=== PATIENT | male | born 1950 | race Caucasian/White ===

== ENCOUNTER → 2019-08-02 | Outpatient (CLI) | payer MEDICARE, OTHER ==
[~2019-08-02] MED LIST: CATHETER FLUSH 10 ML SYR IV PRN; DIATRIZOATE MEGLUM/SODIUM 37% 120 ML (GASTROGRAFIN) PO ONE; HOLD METFORMIN - RECEIVED CONTRAST 20 ML VIAL IV SCH; IOHEXOL 350 MG/ML 100 ML (OMNIPAQUE 350) VIAL IV ONE; NS 100 ML (IVPB) BAG IV ONE
--- NOTE | 2019-08-02 12:27 | Diagnostic Imaging Report ---
PROCEDURE: CT abdomen and pelvis with and without contrast. TECHNIQUE: Precontrast acquisitions were acquired through the abdomen and pelvis. Multiple contiguous axial images were obtained through the abdomen and pelvis after the administration of intravenous contrast. Auto Exposure Controls were utilized during the CT exam to meet ALARA standards for radiation dose reduction. INDICATION: Pelvic pain. COMPARISON: None. FINDINGS: Included portions of lung bases are clear. CT abdomen: Normal appendix cannot be adequately identified, but there is no pericecal inflammation. Small bowel loops are nondistended. The kidneys, adrenal glands, spleen, pancreas, and liver have a normal CT appearance. There is no loculated fluid collection, free fluid, nor free air within the abdomen. No abnormal mesenteric or retroperitoneal adenopathy is seen. Osseous structures show no acute abnormalities. CT pelvis: Bilateral L5 pars defects are noted. Urinary bladder is grossly unremarkable. There is no loculated fluid collection, free fluid, nor free air within the pelvis. No abnormal lymph nodes are identified. IMPRESSION: 1. No acute abnormalities are seen within the abdomen or pelvis. Dictated by: Dictated on workstation # [id number]
== END ==
LOC: RAD 10:22
PROVIDERS: ATTEND Nurse Practitioner Community Health
DX: R10.2 Pelvic and perineal pain (principal)
CPT/HCPCS: 74178

== ENCOUNTER → 2020-05-27 | Outpatient (CLI) | payer MEDICARE, OTHER ==
[~2020-05-27] MED LIST changes: -CATHETER FLUSH 10 ML SYR IV PRN; -DIATRIZOATE MEGLUM/SODIUM 37% 120 ML (GASTROGRAFIN) PO ONE; -HOLD METFORMIN - RECEIVED CONTRAST 20 ML VIAL IV SCH; -IOHEXOL 350 MG/ML 100 ML (OMNIPAQUE 350) VIAL IV ONE; -NS 100 ML (IVPB) BAG IV ONE; +RT-ALBUTEROL SULF 2.5 MG/3 ML PRE-MIX VIAL INH ONE
== END ==
LOC: RT 08:00
PROVIDERS: ATTEND Nurse Practitioner Family
DX: J40 Bronchitis, not specified as acute or chronic (principal)
CPT/HCPCS: 94060; 94726; 94729

== ENCOUNTER 2021-02-20 13:49 | Observation (INO) | payer MEDICARE, OTHER ==
[~2021-02-20] VITALS: Ht 170.2 cm; Wt 72.0 kg
[2021-02-20 13:49] VITALS: BP 165/92
--- OUTSIDE RECORDS SUMMARY | 2021-02-20 13:57 | XMS REPORT | Clinical Summary ---
Author Author [facility] Organization [facility] Address Unknown Phone Unavailable Care Team Providers Care Legislative Aide Name Role Phone Hawa Azul RN Unavailable Unavailable Myrna Killian Unavailable Jenny Allen MD Unavailable Mavis Hubbard Unavailable Unavailable Emmanuel Beyer MD Unavailable Yoselin Sawyer PCP Chalino Salazar MD Unavailable Source Comments Some departments are not documenting in the electronic medical record. If you d o not see the information that you expected, contact Release of Information in [facility] Health Information Management department at [phone] for further assistan ce in locating additional records.[facility] Allergies No Known Active Allergies Medications End Date Status Medication Sig Dispensed Refills Start Date Active famotidine,+, (PEPCID) 40 Take 1 Tab by 60 0 07/25/200 mg tablet mouth Daily. 9 Active SERTRALINE HCL (ZOLOFT Take by 0 PO) mouth. 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 Vital Signs Reading Time Taken Comments Vital Sign 156/82 10/31/2020 10:42 AM CDT Blood Pressure 77 10/31/2020 10:42 AM CDT Pulse 37.6 C (99.7 F) 09/12/2020 9:23 AM CDT Temperature 16 10/30/2015 8:56 AM CDT Respiratory Rate 100% 07/25/2008 7:14 PM CDT Oxygen Saturation - - Inhaled Oxygen Concentration 70.3 kg (155 lb) 10/31/2020 10:42 AM CDT Weight 170.2 cm (5' 7") 10/31/2020 10:42 AM CDT Height 24.28 10/31/2020 10:42 AM CDT Body Mass Index Plan of Treatment Health Maintenance Due Date Last Done Comments MEDICARE ANNUAL WELLNESS 1950 VISIT DTAP/TDAP VACCINES (1 - 1966 Tdap) HEPATITIS C SCREENING 1966 PHYSICAL (COMPREHENSIVE) 1966 EXAM COLORECTAL CANCER 1998 SCREENING SHINGLES RECOMBINANT 1998 VACCINE (1 of 2) PNEUMONIA (PPSV23) 2013 VACCINE (1 of 1 - PPSV23) INFLUENZA VACCINE 11/16/2020 Results Not on filefrom Last 3 Months Insurance Type Payer Benefit Subscriber ID Effective Phone Address Plan / Dates Group Medicare MEDICARE MEDICARE [id number] 2013- PART A AND Present B [employer] [id number] 03/18- [place] LIFE Present INSURANCE CO Advance Directives Patient [employer] Explanation Type Date Recorded Advance 01/08/2015 9:31 AM Directive/DPOA
[2021-02-20 14:16] LABS: BASOPHILS % (AUTO) 1 % (0-10); EOSINOPHILS # (AUTO) 0.1 10^3/uL (0.0-0.3); EOSINOPHILS % (AUTO) 2 % (0-10); HEMATOCRIT 45 % (40-54); HEMOGLOBIN 15.7 g/dL (13.3-17.7); LYMPHOCYTES # (AUTO) 1.4 10^3/uL (1.0-4.0); LYMPHOCYTES % (AUTO) 24 % (12-44); MEAN CORPUSCULAR HEMOGLOBIN 31 pg (25-34); MEAN CORPUSCULAR HGB CONC 35 g/dL (32-36); MEAN CORPUSCULAR VOLUME 88 fL (80-99); MEAN PLATELET VOLUME 9.4 fL (9.0-12.2); MONOCYTES # (AUTO) 0.7 10^3/uL (0.0-1.0); MONOCYTES % (AUTO) 13 % (0-12); NEUTROPHILS # (AUTO) 3.5 10^3/uL (1.8-7.8); NEUTROPHILS % (AUTO) 61 % (42-75); PLATELET COUNT 221 10^3/uL (130-400); WHITE BLOOD COUNT 5.8 10^3/uL (4.3-11.0)
--- NOTE | 2021-02-20 14:18 | ED Neurological Problem ---
General Chief Complaint: Neuro-Stroke Like Symptoms Stated Complaint: POSSIBLE STROKE Nursing Triage Note: PT AMB TO RM 2 W REPORTS OF RIGHT LEG NUMBNESS X20 MINS THAT BEGAN AT APPROX [phone]. PT WAS ADVISED TO COME TO ED BY [facility]. PT A&OX4. Source: patient Exam Limitations: no limitations History of Present Illness Date Seen by Provider: Feb 20, 2021 Time Seen by Provider: 14:12 Initial Comments Patient to the ER by private conveyance from urgent care clinic with chief complaint that he woke up this morning about 530 he was doing some work and then laid down for a brief nap at 9:00. He woke up between 915 and 930 and was noted to have numbness and weakness in his left leg. He was unable to move it just directed behind it. No history of stroke TIA A. fib heart disease heart attack. Patient does not have a history of hypertension hyperlipidemia. He follows with primary care and neurology at [place] where he was originally from and never transferred to a new doctor when he moved to the area. Since the symptoms lasted only about 20 to 30 minutes and spontaneously resolved he went to urgent care to be checked out. He says he works out every day and is healthy and does not have much medical history. He is not on blood thinners. His blood sugar was 90s according to nurse. No syncope chest pain or shortness of air. He denies any slurred speech facial asymmetry or other symptoms Allergies and Home Medications Allergies Coded Allergies: No Allergy Information Available (Unverified , 08/02/19) Patient Home Medication List Home Medication List Reviewed: Yes Review of Systems Review of Systems Constitutional: No chills, No diaphoresis, No fever, No malaise Eyes: Denies Blindness, Denies Blurred Vision Ears, Nose, Mouth, Throat: denies ear pain, denies ear discharge Respiratory: No cough, No short of breath Cardiovascular: No chest pain, No palpitations Gastrointestinal: No abdominal pain, No constipation, No diarrhea, No nausea, No vomiting Genitourinary: No discharge, No dysuria Musculoskeletal: No back pain, No joint pain Skin: No pruritus, No rash Psychiatric/Neurological: See HPI; Denies Headache; Numbness, Unable to Move Lower Ext, Weakness All Other Systems Reviewed Negative Unless Noted: Yes Past Jglgifp-Ogvsfa-Yaflvc Hx Patient Social History Tobacco Use?: No Use of E-Cig and/or Vaping dev: No Substance use?: No Alcohol Use?: No Immunizations Up To Date First/Initial COVID19 Vaccinat: 2020 Second COVID19 Vaccination Adolph: 2020 COVID19 Vaccine Cad Developer: NADYA Physical Exam Vital Signs Vital Signs - First Documented Capillary Refill : Less Than 3 Seconds Height, Weight, BMI Height: '" Weight: lbs. oz. kg; 24.00 BMI Method: General Appearance: WD/WN, no apparent distress HEENT: PERRL/EOMI, normal ENT inspection, TMs normal, pharynx normal Neck: non-tender, full range of motion, supple, normal inspection Respiratory: lungs clear, normal breath sounds, no respiratory distress, no accessory muscle use Cardiovascular: normal peripheral pulses, regular rate, rhythm Peripheral Pulses: 2+ Radial Pulses (R), 2+ Radial Pulses (L) Gastrointestinal: normal bowel sounds, non tender, soft Extremities: normal range of motion, non-tender, normal inspection, no pedal edema, normal capillary refill Neurologic/Psychiatric: alert, normal mood/affect, oriented x 3 Crainal Nerves: normal hearing, normal speech, PERRL Coordination/Gait: normal gait Motor/Sensory: no motor deficit, no sensory deficit, no pronator drift Skin: normal color, warm/dry Stroke Onset of Symptoms Date of Onset of Symptoms: Feb 20, 2021 Time of Symptom Onset: 09:00 Onset of Symptoms: Yes NIH Stroke Scale Assessment Select: Initial Level of Consciousness: 0=Alert (0), Level of Consciousness- Questions: 0=Answers both month/age (0), LOC Commands: 0=Performs both tasks (0), Visual Gale: 0=No visual loss (0), Facial Movement (Facial Paresis): 0=Normal symmetrical mnt (0), Motor Function-Arms Right: 0=No drift (0), Motor Function-Arms Left: 0=No drift (0), Motor Function-Legs Right: 0=No drift (0), Motor Function-Legs Left: 0=No drift (0), Limb Ataxia: 0=Absent (0), Sensory: 0=Normal:no loss (0), Best Language: 0=No aphasia (0), Dysarthria: 0=Normal (0), Extinction & Inattention: 0=No abnormality (0), Total: 0 Stroke Thrombolytic Exclusion Age 18 or Over: Yes Acute intenal hemorrhage: No History of CVA: No Uncontrolled Coagulation Defec: No Intracranial Hemorrhage: No Severe Hypertension: No GI or Bleed: No Subarachnoid Hemorrhage: No Intracranial Neoplasm/Aneurysm: No Oral Anticoagulants: No Surgery or Trauma: No Puncture of Non-Compressible V: No Recent CPR: No Diabetic Hemorrhagic Retinopat: No Organ Biopsy: No Recent Obstetric Delivery: No Glucose: No Significant Hepatic Dysfunctio: No NIH Stoke Scale >22: No Bacterial Endocarditis: No Pericarditis: No Improving Symptoms: No Platelets: No TPA Contraindication: No IV - TPa Received IV - TPa Procedure Performed?: No (Inadequate benefit to risk ratio. Outside the window for time.) Progress/Results/Core Measures Results/Orders Lab Results Laboratory Tests Test 02/20/21 14:00 02/20/21 14:01 Range/Units White Blood Count 5.8 4.3-11.0 10^3/uL Red Blood Count 5.10 4.30-5.52 10^6/uL Hemoglobin 15.7 13.3-17.7 g/dL Hematocrit 45 40-54 % Mean Corpuscular Volume 88 80-99 fL Mean Corpuscular Hemoglobin 31 25-34 pg Mean Corpuscular Hemoglobin Concent 35 32-36 g/dL Red Cell Distribution Width 11.9 10.0-14.5 % Platelet Count 221 130-400 10^3/uL Mean Platelet Volume 9.4 9.0-12.2 fL Immature Granulocyte % (Auto) 0 % Neutrophils (%) (Auto) 61 42-75 % Lymphocytes (%) (Auto) 24 12-44 % Monocytes (%) (Auto) 13 H 0-12 % Eosinophils (%) (Auto) 2 0-10 % Basophils (%) (Auto) 1 0-10 % Neutrophils # (Auto) 3.5 1.8-7.8 10^3/uL Lymphocytes # (Auto) 1.4 1.0-4.0 10^3/uL Monocytes # (Auto) 0.7 0.0-1.0 10^3/uL Eosinophils # (Auto) 0.1 0.0-0.3 10^3/uL Basophils # (Auto) 0.0 0.0-0.1 10^3/uL Immature Granulocyte # (Auto) 0.0 0.0-0.1 10^3/uL Prothrombin Time 14.4 12.2-14.7 SEC INR Comment 1.1 0.8-1.4 Activated Partial Thromboplast Time 31 24-35 SEC D-Dimer 0.32 0.00-0.49 UG/ML Sodium Level 138 135-145 MMOL/L Potassium Level 4.0 3.6-5.0 MMOL/L Chloride Level 105 98-107 MMOL/L Carbon Dioxide Level 25 21-32 MMOL/L Anion Gap 8 5-14 MMOL/L Blood Urea Nitrogen 17 7-18 MG/DL Creatinine 0.89 0.60-1.30 MG/DL Estimat Glomerular Filtration Rate 84 BUN/Creatinine Ratio 19 Glucose Level 102 70-105 MG/DL Calcium Level 9.1 8.5-10.1 MG/DL Corrected Calcium 8.9 8.5-10.1 MG/DL Total Bilirubin 0.8 0.1-1.0 MG/DL Aspartate Amino Transf (AST/SGOT) 29 5-34 U/L Alanine Aminotransferase (ALT/SGPT) 29 0-55 U/L Alkaline Phosphatase 70 40-136 U/L Troponin I < 0.028 <0.028 NG/ML Total Protein 6.8 6.4-8.2 GM/DL Albumin 4.3 3.2-4.5 GM/DL Glucometer 93 70-110 MG/DL My Orders Orders - FIDE GROSSMAN Cbc With Automated Diff (02/20/21 14:07) Protime With Inr (02/20/21 14:07) Partial Thromboplastin Time (02/20/21 14:07) Comprehensive Metabolic Panel (02/20/21 14:07) Fibrin Degradation Products (02/20/21 14:07) Troponin I (02/20/21 14:07) Ua Culture If Indicated (02/20/21 14:07) Chest 1 View, Ap/Pa Only (02/20/21 14:07) Ekg Tracing (02/20/21 14:07) Nothing By Mouth (02/20/21 Lunch) Accucheck Stat ONCE (02/20/21 14:07) Ed Iv/Invasive Line Start (02/20/21 14:07) Ed Iv/Invasive Line Start (02/20/21 14:07) Vital Signs Stroke Patient Q15M (02/20/21 14:07) Ct Head Wo-R/O Stroke (02/20/21 14:07) O2 (02/20/21 14:07) Intake & Output 06,14,22 (02/20/21 14:07) Monitor-Rhythm Ecg Trace Only (02/20/21 14:07) Dysphagia Screening Tool (02/20/21 14:07) Lipid Panel (02/21/21 06:00) Ct Angio Head/Neck (02/20/21 14:48) Mri Brain W/O Contrast (02/20/21 15:10) Medications Given in ED Current Medications Medications Dose Ordered Sig/Gilma Route Start Time Stop Time Status Last Admin Dose Admin Iohexol 75 ml ONCE ONCE IV 02/20/21 15:15 02/20/21 15:17 DC 02/20/21 15:17 75 ML Sodium Chloride 10 ml NEEDED PRN IV 02/20/21 15:15 02/20/21 15:18 10 ML Sodium Chloride 100 ml ONCE ONCE IV 02/20/21 15:15 02/20/21 15:17 DC 02/20/21 15:17 80 ML Vital Signs/I&O 02/20/21 02/20/21 13:49 13:49 Temp 36.4 Pulse 75 75 Resp 20 20 B/P (MAP) 165/92 (116) 165/92 Pulse Ox 96 96 O2 Delivery Room Air Blood Pressure Mean: 116 Progress Progress Note : Time: 14:15 Progress Note Patient presents 5 hours after onset of symptoms and so he is outside the window for TPA. He also is asymptomatic. Suspect he had a TIA. We will get a CT of his head and reviewed the case with neurology and we have recommended to him an observation stay to meet with cardiology on telemetry and do a thorough work-up for the source of his symptoms. Patient states his agreement with this plan. Patient is significantly hypertensive with a 176 systolic over 109 on arrival. Hypertensive encephalopathy is also a possibility. Will observe his blood pressure. Initial ECG Impression Date: Feb 20, 2021 Initial ECG Impression Time: 14:11 Initial ECG Rate: 78 Initial ECG Rhythm: Normal Sinus Initial ECG Intervals: Normal Initial ECG Impression: Normal Initial ECG Comparisson: No Previous ECG Available Comment Normal sinus rhythm without clinically relevant ST elevation or depression Diagnostic Imaging Diagonstic Imaging: CT Plain Films/CT/US/NM/MRI: head Comments [facility] [place], [place] NAME: MICHELLE FAITH MED REC#: [id number] PT STATUS: REG ER : 1950 PHYSICIAN: FIDE GROSSMAN MD ADMIT DATE: 02/20/21/ER Draft Date of Exam:02/20/21 CT HEAD WO-R/O STROKE PROCEDURE: CT head wo r/o stroke. TECHNIQUE: Multiple contiguous axial images were obtained through the brain without the use of intravenous contrast. Auto Exposure Controls were utilized during the CT exam to meet ALARA standards for radiation dose reduction. INDICATION: Lower extremity weakness. There is no previous study for comparison. Ventricles and sulci are within normal limits for patient's age. There is low-density and deep white matter of both hemispheres which could represent chronic microvascular ischemia. No intracranial hemorrhage is identified. There is no geographic low density to indicate territorial infarct. High density is seen within the cerebral arteries. This may be due to atherosclerosis or hemoconcentration although clinical correlation is recommended. There is no abnormal mass effect or shift of midline structures. Calvarium is intact and the visualized paranasal sinuses are clear. IMPRESSION: Low-density in the cerebral white matter is likely due to chronic microvascular ischemia. Note is also made of increased density in the cerebral arterial tree which could be due to atherosclerosis or hemoconcentration. If further evaluation is warranted, consideration could be given to CTA of the head for assessment. Dictated on workstation # [id number] Dict: 02/20/21 1424 Trans: 02/20/211427 [facility] [id number] Interpreted by: TINA MACIAS MD Electronically signed by: Reviewed: Reviewed by Ca Diagonstic Imaging: Xray Plain Films/CT/US/NM/MRI: chest Comments [facility] [place] [place] NAME: MICHELLE FAITH MED REC#: [id number] PT STATUS: REG ER : 1950 PHYSICIAN: FIDE GROSSMAN MD ADMIT DATE: 02/20/21/ER Draft Date of Exam:02/20/21 CHEST 1 VIEW, AP/PA ONLY INDICATION: Stroke-like symptoms. EXAMINATION: Chest from 02/20/2021. FINDINGS: The heart is unremarkable. Pulmonary vasculature is normal. The lungs and pleural spaces are clear. No pneumothorax. No effusions. No acute osseous abnormality. IMPRESSION: 1. No acute cardiopulmonary process. Dictated on workstation # [id number] Dict: 02/20/21 1434 Trans: 02/20/21 1439 [id number] Interpreted by: SCARLET LUTHER MD Electronically signed by: Reviewed: Reviewed by Me Diagonstic Imaging: CT Plain Films/CT/US/NM/MRI: head (neck angio) Comments NAME: MICHLELE FAITH [facility] REC#: [id number] PT STATUS: REG ER : 1950 PHYSICIAN: FIDE GROSSMAN MD ADMIT DATE: 02/20/21/ER Draft Date of Exam:02/20/21 CT ANGIO HEAD/NECK PROCEDURE: CT angiography of the head and CT angiography of the neck with and without contrast. TECHNIQUE: Contiguous noncontrast images were obtained from the skull base through the vertex. After intravenous contrast administration, helical CT angiography of the neck was performed. Source data was reformatted into 3D MIP projections. Delayed post contrast acquisition was also obtained. Auto Exposure Controls were utilized during the CT exam to meet ALARA standards for radiation dose reduction. INDICATION: STROKE. FINDINGS: Delayed postcontrast imaging shows no abnormal enhancing lesion. CT angiographic portion of the study demonstrates a three-vessel branching pattern to the aortic arch. The right and left common carotid arteries are widely patent. The carotid bifurcations are unremarkable. The right and left internal carotid arteries appear to be widely patent. The vertebral arteries are codominant and appear to be widely patent. Basilar artery is widely patent. A right P1 segment is hypoplastic with a patent posterior communicating artery on the right. Bilateral posterior cerebral arteries appear to be patent. The M1 and M2 segments of the middle cerebral arteries, bilaterally, appear widely patent. No thromboembolism is identified. The right and left anterior cerebral arteries appear to be widely patent. No large branch occlusion is identified. IMPRESSION: Unremarkable CT angiogram of the head and neck. No thromboembolism or large branch occlusion is identified. Dictated on workstation # [id number] Dict: 02/20/21 1528 Trans: 02/20/21 1542 [facility] [id number] Interpreted by: MELISA ALBARRAN MD Electronically signed by: Reviewed: Reviewed by Me Diagonstic Imaging: MRI Plain Films/CT/US/NM/MRI: head Comments [facility] [place] NAME: MICHELLE FAITH [facility] REC#: [id number] PT STATUS: ADM Rhea : 1950 PHYSICIAN: FIDE GROSSMAN MD ADMIT DATE: 02/20/21 Draft Date of Exam:02/20/21 MRI BRAIN W/O CONTRAST PROCEDURE: MR imaging of the brain without contrast. TECHNIQUE: Multiplanar, multisequence MR imaging of the brain was performed without contrast. INDICATION: TIA, lower extremity weakness. COMPARISON: CT head and CTA head and neck from earlier the same day. FINDINGS: No restricted diffusion that would indicate acute infarct. No gradient blooming hypointensities that would indicate hemorrhage. Extensive T2 hyperintensities in the deep white matter and erma. This is a distribution that favors chronic microvascular ischemic disease. No hydrocephalus, mass or extra-axial fluid collection. No features of vasogenic edema. Major arterial flow voids are preserved. Pituitary and pineal regions are unremarkable. No sagging of the brainstem. Calvarium is unremarkable. Orbits are normal in appearance. Paranasal sinuses are clear. Mastoid air cells are clear. IMPRESSION: 1. No acute intracranial abnormality. Specifically, no acute infarct. 2. Extensive chronic small vessel ischemic change. Dictated on workstation # [id number] Dict: 02/20/21 1554 Trans: 02/20/21 1606 [facility] [id number] Interpreted by: CHASITY QUINTEROS MD Electronically signed by: Reviewed: Reviewed by Me Consults : Consults Notes Dr. Hicks, [facility] stroke neurologist on-call. Discussed the case at 1440. She recommends CT angiogram. Concern for lesion of anterior cerebral artery. Otherwise standard work-up including echocardiogram MRI etc. Departure Communication (Admissions) Time/Spoke to Admitting Phy: 15:10 1510: Left voicemail for Dr. Lindsey. 1520: Discussed the case with Dr. Lindsey and she agrees to observe the patient with consultation to cardiology. MRI today Time/Spoke to Consulting Phy: 15:15 Discussed the case with Dr. Zhang, cardiology is okay with an echocardiogram in the morning and will consult on the case Impression Primary Impression: TIA (transient ischemic attack) Additional Impression: Transient left leg weakness Disposition: ADMITTED INPATIENT Condition: Stable Admissions Decision to Admit Reason: Admit from ER (General) Decision to Admit/Date: Feb 20, 2021 Time/Decision to Admit Time: 14:19 Departure-Patient Inst. Referrals: NO,LOCAL PHYSICIAN (PCP/Family) Primary Care Physician FIDE GROSSMAN Feb 20, 2021 14:17
[2021-02-20 14:24] LABS: FIBRIN DEGRADATION PRODUCTS 0.32 UG/ML (0.00-0.49); INR 1.1 (0.8-1.4); PROTHROMBIN TIME PATIENT 14.4 SEC (12.2-14.7)
--- NOTE | 2021-02-20 14:28 | Diagnostic Imaging Report ---
PROCEDURE: CT head wo r/o stroke. TECHNIQUE: Multiple contiguous axial images were obtained through the brain without the use of intravenous contrast. Auto Exposure Controls were utilized during the CT exam to meet ALARA standards for radiation dose reduction. INDICATION: Lower extremity weakness. There is no previous study for comparison. Ventricles and sulci are within normal limits for patient's age. There is low-density and deep white matter of both hemispheres which could represent chronic microvascular ischemia. No intracranial hemorrhage is identified. There is no geographic low density to indicate territorial infarct. High density is seen within the cerebral arteries. This may be due to atherosclerosis or hemoconcentration although clinical correlation is recommended. There is no abnormal mass effect or shift of midline structures. Calvarium is intact and the visualized paranasal sinuses are clear. IMPRESSION: Low-density in the cerebral white matter is likely due to chronic microvascular ischemia. Note is also made of increased density in the cerebral arterial tree which could be due to atherosclerosis or hemoconcentration. If further evaluation is warranted, consideration could be given to CTA of the head for assessment. Dictated by: Dictated on workstation # [id number]
[2021-02-20 14:30] LABS: ALANINE AMINOTRANSFERASE 29 U/L (0-55); ALBUMIN 4.3 GM/DL (3.2-4.5); ALKALINE PHOSPHATASE 70 U/L (40-136); BILIRUBIN,TOTAL 0.8 MG/DL (0.1-1.0); BUN/CREATININE RATIO 19; CALCIUM 9.1 MG/DL (8.5-10.1); CARBON DIOXIDE 25 MMOL/L (21-32); CHLORIDE 105 MMOL/L (98-107); CREATININE SERUM 0.89 MG/DL (0.60-1.30); GFR ESTIMATED 84; GLUCOSE 102 MG/DL (70-105); SODIUM 138 MMOL/L (135-145); TOTAL PROTEIN 6.8 GM/DL (6.4-8.2)
--- NOTE | 2021-02-20 14:40 | Diagnostic Imaging Report ---
INDICATION: Stroke-like symptoms. EXAMINATION: Chest from 02/20/2021. FINDINGS: The heart is unremarkable. Pulmonary vasculature is normal. The lungs and pleural spaces are clear. No pneumothorax. No effusions. No acute osseous abnormality. IMPRESSION: 1. No acute cardiopulmonary process. Dictated by: Dictated on workstation # [id number]
[2021-02-20] MEDS ORDERED: HOLD METFORMIN - RECEIVED CONTRAST 20 ML VIAL IV SCH (15:15)
[2021-02-20] MEDS ORDERED: IOHEXOL 350 MG/ML 100 ML (OMNIPAQUE 350) VIAL IV ONE (15:15)
[2021-02-20] MEDS ORDERED: CATHETER FLUSH 10 ML SYR IV PRN ×2 (15:15→17:30)
[2021-02-20] MEDS ORDERED: NS 100 ML (IVPB) BAG IV ONE (15:15)
[2021-02-20 15:34] LABS: BILIRUBIN,URINE NEGATIVE (NEGATIVE); CLARITY,URINE CLEAR; COLOR,URINE YELLOW; GLUCOSE, URINE (UA) NEGATIVE (NEGATIVE); KETONES,URINE NEGATIVE (NEGATIVE); LEUKOCYTE ESTERASE ,URINE NEGATIVE (NEGATIVE); NITRITE,URINE NEGATIVE (NEGATIVE); PROTEIN,URINE NEGATIVE (NEGATIVE)
[2021-02-20 15:40] LABS: BACTERIA,URINE NEGATIVE /HPF; RBC,URINE 0-2 /HPF; SQUAMOUS EPITHELIAL CELL,UR RARE /HPF
--- NOTE | 2021-02-20 15:43 | Diagnostic Imaging Report ---
PROCEDURE: CT angiography of the head and CT angiography of the neck with and without contrast. TECHNIQUE: Contiguous noncontrast images were obtained from the skull base through the vertex. After intravenous contrast administration, helical CT angiography of the neck was performed. Source data was reformatted into 3D MIP projections. Delayed post contrast acquisition was also obtained. Auto Exposure Controls were utilized during the CT exam to meet ALARA standards for radiation dose reduction. INDICATION: STROKE. FINDINGS: Delayed postcontrast imaging shows no abnormal enhancing lesion. CT angiographic portion of the study demonstrates a three-vessel branching pattern to the aortic arch. The right and left common carotid arteries are widely patent. The carotid bifurcations are unremarkable. The right and left internal carotid arteries appear to be widely patent. The vertebral arteries are codominant and appear to be widely patent. Basilar artery is widely patent. A right P1 segment is hypoplastic with a patent posterior communicating artery on the right. Bilateral posterior cerebral arteries appear to be patent. The M1 and M2 segments of the middle cerebral arteries, bilaterally, appear widely patent. No thromboembolism is identified. The right and left anterior cerebral arteries appear to be widely patent. No large branch occlusion is identified. IMPRESSION: Unremarkable CT angiogram of the head and neck. No thromboembolism or large branch occlusion is identified. Dictated by: Dictated on workstation # [id number]
--- NOTE | 2021-02-20 15:43 | History & Physical-Hospitalist ---
History of Present Illness Source: patient Date Seen 02/20/21 Time Seen by a Provider: 15:43 Attending Physician PCP No,Local Physician Referring Physician Date of Admission Home Medications & Allergies Home Medications Reviewed patient Home Medication Reconciliation performed by pharmacy medication reconciliations denture technician and/or nursing. Patients Allergies have been reviewed. Allergies Allergies Coded Allergies No Allergy Information Available (Unverified08/02/19) Past Tchzduj-Hmosew-Snfwqr Hx Patient Social History Tobacco Use?: No Use of E-Cig and/or Vaping dev: No Substance use?: No Alcohol Use?: No Immunizations Up To Date First/Initial COVID19 Vaccinat: 2020 Second COVID19 Vaccination Adolph: 2020 Current Status Advance Directives: No Communicates: Verbally Primary Language: Prydeinig Preferred Spoken Language: Prydeinig Is interpretation needed?: No Implanted or Applied Medical D: None Physical Exam Physical Exam Vital Signs Vital Signs - First Documented Capillary Refill : Less Than 3 Seconds Height, Weight, BMI Height: '" Weight: lbs. oz. kg; 24.00 BMI Method: Results Results/Procedures Labs Laboratory Tests 02/20/21 14:00 Patient resulted labs reviewed. Clinical Quality Measures Stroke: Date of last known well: Feb 20, 2021 Time of last known well: 09:00 KATHLEEN TURNER MD Feb 20, 2021 15:43
--- NOTE | 2021-02-20 16:07 | Diagnostic Imaging Report ---
PROCEDURE: MR imaging of the brain without contrast. TECHNIQUE: Multiplanar, multisequence MR imaging of the brain was performed without contrast. INDICATION: TIA, lower extremity weakness. COMPARISON: CT head and CTA head and neck from earlier the same day. FINDINGS: No restricted diffusion that would indicate acute infarct. No gradient blooming hypointensities that would indicate hemorrhage. Extensive T2 hyperintensities in the deep white matter and erma. This is a distribution that favors chronic microvascular ischemic disease. No hydrocephalus, mass or extra-axial fluid collection. No features of vasogenic edema. Major arterial flow voids are preserved. Pituitary and pineal regions are unremarkable. No sagging of the brainstem. Calvarium is unremarkable. Orbits are normal in appearance. Paranasal sinuses are clear. Mastoid air cells are clear. IMPRESSION: 1. No acute intracranial abnormality. Specifically, no acute infarct. 2. Extensive chronic small vessel ischemic change. Dictated by: Dictated on workstation # [id number]
--- NOTE | 2021-02-20 16:19 | History & Physical-Hospitalist ---
History of Present Illness HPI/Chief Complaint Pt is a 70-year-old male with no reported past medical history who presented to the emergency department due to left leg weakness. He states he is in the process of moving and was loading up his truck when he got tired and so decided to take a nap. When he woke up he could not move his left leg. He thought that had just gone to sleep but this continued for over half an hour without improvement so he decided to seek evaluation. He [place] [facility] [place] and was advised to come to the emergency department. By arrival here his symptoms had resolved and his NIH was 0. CT head was done and was ne gative for intracranial hemorrhage. He was admitted for TIA for observation overnight. He reports no previous similar episodes. Source: patient Date Seen 02/20/21 Time Seen by a Provider: 16:13 Attending Physician Kathleen Lindsey MD PCP No,Local Physician Referring Physician Date of Admission Feb 20, 2021 at 15:15 Home Medications & Allergies Home Medications Reviewed patient Home Medication Reconciliation performed by pharmacy medication reconciliations microbiological laboratory technician and/or nursing. Patients Allergies have been reviewed. Allergies Allergies Coded Allergies No Allergy Information Available (Unverified08/02/19) Past Srydztu-Hulxjh-Bxgsdf Hx Patient Social History Tobacco Use?: No Use of E-Cig and/or Vaping dev: No Substance use?: No Alcohol Use?: No Immunizations Up To Date First/Initial COVID19 Vaccinat: 2020 Second COVID19 Vaccination Adolph: 2020 Current Status Advance Directives: No Communicates: Verbally Primary Language: Hebrew Preferred Spoken Language: Hebrew Is interpretation needed?: No Implanted or Applied Medical D: None Review of Systems Constitutional: No chills, No fever EENTM: no symptoms reported Respiratory: no symptoms reported Cardiovascular: No edema, No Hx of Intervention, No palpitations Gastrointestinal: no symptoms reported Genitourinary: no symptoms reported Musculoskeletal: see HPI Skin: no symptoms reported Psychiatric/Neurological: See HPI Physical Exam Physical Exam Vital Signs Vital Signs - First Documented Capillary Refill : Less Than 3 Seconds Height, Weight, BMI Height: '" Weight: lbs. oz. kg; 24.00 BMI Method: General Appearance: No Apparent Distress, WD/WN HEENT: PERRL/EOMI, Moist Mucous Membranes Neck: Normal Inspection, Supple Respiratory: Lungs Clear, No Accessory Muscle Use, No Respiratory Distress Cardiovascular: Regular Rate, Rhythm, No JVD, No Murmur Gastrointestinal: Normal Bowel Sounds, Non Tender, Soft Extremity: Non Tender, No Calf Tenderness, No Pedal Edema Neurologic/Psychiatric: Alert, Oriented x3, Normal Mood/Affect; No Aphasia, No Facial Droop, No Motor Weakness, No Sensory Deficit Skin: Normal Color, Warm/Dry Results Results/Procedures Labs Laboratory Tests 02/20/21 14:00 02/21/21 06:22 Patient resulted labs reviewed. Imaging: Reviewed Imaging Report Imaging [facility] [place], [place] NAME: MICHELLE FAITH [facility] REC#: [id number] PT STATUS: REG ER : 1950 PHYSICIAN: FIDE GROSSMAN MD ADMIT DATE: 02/20/21/ER Draft Date of Exam:02/20/21 CT HEAD WO-R/O STROKE PROCEDURE: CT head wo r/o stroke. TECHNIQUE: Multiple contiguous axial images were obtained through the brain without the use of intravenous contrast. Auto Exposure Controls were utilized during the CT exam to meet ALARA standards for radiation dose reduction. INDICATION: Lower extremity weakness. There is no previous study for comparison. Ventricles and sulci are within normal limits for patient's age. There is low-density and deep white matter of both hemispheres which could represent chronic microvascular ischemia. No intracranial hemorrhage is identified. There is no geographic low density to indicate territorial infarct. High density is seen within the cerebral arteries. This may be due to atherosclerosis or hemoconcentration although clinical correlation is recommended. There is no abnormal mass effect or shift of midline structures. Calvarium is intact and the visualized paranasal sinuses are clear. IMPRESSION: Low-density in the cerebral white matter is likely due to chronic microvascular ischemia. Note is also made of increased density in the cerebral arterial tree which could be due to atherosclerosis or hemoconcentration. If further evaluation is warranted, consideration could be given to CTA of the head for assessment. Dictated on workstation # [id number] Dict: 02/20/21 1424 Trans: 02/20/21 1428 CV [id number] Interpreted by: TINA MACIAS MD Electronically signed by: [facility] [place] [place] NAME: MICHELLE FAITH [facility] REC#: [id number] PT STATUS: ADM Rhea : 1950 PHYSICIAN: FIDE GROSSMAN MD ADMIT DATE: 02/20/21 Signed Date of Exam:02/20/21 CT ANGIO HEAD/NECK PROCEDURE: CT angiography of the head and CT angiography of the neck with and without contrast. TECHNIQUE: Contiguous noncontrast images were obtained from the skull base through the vertex. After intravenous contrast administration, helical CT angiography of the neck was performed. Source data was reformatted into 3D MIP projections. Delayed post contrast acquisition was also obtained. Auto Exposure Controls were utilized during the CT exam to meet ALARA standards for radiation dose reduction. INDICATION: STROKE. FINDINGS: Delayed postcontrast imaging shows no abnormal enhancing lesion. CT angiographic portion of the study demonstrates a three-vessel branching pattern to the aortic arch. The right and left common carotid arteries are widely patent. The carotid bifurcations are unremarkable. The right and left internal carotid arteries appear to be widely patent. The vertebral arteries are codominant and appear to be widely patent. Basilar artery is widely patent. A right P1 segment is hypoplastic with a patent posterior communicating artery on the right. Bilateral posterior cerebral arteries appear to be patent. The M1 and M2 segments of the middle cerebral arteries, bilaterally, appear widely patent. No thromboembolism is identified. The right and left anterior cerebral arteries appear to be widely patent. No large branch occlusion is identified. IMPRESSION: Unremarkable CT angiogram of the head and neck. No thromboembolism or large branch occlusion is identified. Dictated by: Dictated on workstation # [id number] Dict: 02/20/21 1528 Trans: 02/20/21 1557 [facility] [id number] Interpreted by: MELISA ALBARRAN MD Electronically signed by: MELISA ALBARRAN MD 02/20/21 1557 [facility] [place], [place] NAME: MICHELLE FAITH [facility] REC#: [id number] PT STATUS: ADM Rhea : 1950 PHYSICIAN: FIDE GROSSMAN MD ADMIT DATE: 02/20/21 Draft Date of Exam:02/20/21 MRI BRAIN W/O CONTRAST PROCEDURE: MR imaging of the brain without contrast. TECHNIQUE: Multiplanar, multisequence MR imaging of the brain was performed without contrast. INDICATION: TIA, lower extremity weakness. COMPARISON: CT head and CTA head and neck from earlier the same day. FINDINGS: No restricted diffusion that would indicate acute infarct. No gradient blooming hypointensities that would indicate hemorrhage. Extensive T2 hyperintensities in the deep white matter and erma. This is a distribution that favors chronic microvascular ischemic disease. No hydrocephalus, mass or extra-axial fluid collection. No features of vasogenic edema. Major arterial flow voids are preserved. Pituitary and pineal regions are unremarkable. No sagging of the brainstem. Calvarium is unremarkable. Orbits are normal in appearance. Paranasal sinuses are clear. Mastoid air cells are clear. IMPRESSION: 1. No acute intracranial abnormality. Specifically, no acute infarct. 2. Extensive chronic small vessel ischemic change. Dictated on workstation # [id number] Dict: 02/20/21 1554 Trans: 02/20/21 1606 [facility] [id number] Interpreted by: CHASITY QUINTEROS MD Electronically signed by: Assessment/Plan Admission Diagnosis TIA Admission Status: Observation Assessment and Plan TIA- left leg weakness CT and CTA Head negative for acute abnormalities MRI Brain negative for acute findings but showed extenisve chronic small vessel disease Symptoms resolved now Monitor overnight with telemetry Cardiology consulted Echo in AM PT/OT Hopefully home tomorrow if he does well HTN Denies HTN but filled amlodipine 90 day supply in December and hypertensive on arrival Continue amlodipine DVT ppx: Lovenox Diagnosis/Problems Diagnosis/Problems (1) TIA (transient ischemic attack) Status: Acute (2) Essential (primary) hypertension Clinical Quality Measures Stroke: Date of last known well: Feb 20, 2021 Time of last known well: 09:00 KATHLEEN LINDSEY MD Feb 20, 2021 16:19
[2021-02-20] MEDS ORDERED: ACETAMINOPHEN 325 MG TABLET PO PRN (17:30)
[2021-02-20] MEDS ORDERED: ACETAMINOPHEN 650 MG SUPP (TYLENOL) PR PRN (17:30)
[2021-02-20] MEDS ORDERED: MILK OF MAGNESIA 400 MG/5 ML 30 ML UDC PO PRN (17:30)
[2021-02-20] MEDS ORDERED: APAP 325 MG/10.15 ML LIQ (TYLENOL) UDC PO PRN (17:30)
[2021-02-20] MEDS ORDERED: APAP 325 MG/10.15 ML LIQ (TYLENOL) UDC NG PRN (17:30)
[2021-02-20 19:18] VITALS: BP 139/73
[2021-02-20] MEDS: CATHETER FLUSH 10 ML SYR IV SCH (20:13)
[2021-02-21 00:20] VITALS: BP 118/67
[2021-02-21 04:20] VITALS: BP 141/78
[2021-02-21 06:36] LABS: BASOPHILS % (AUTO) 0 % (0-10); EOSINOPHILS # (AUTO) 0.2 10^3/uL (0.0-0.3); EOSINOPHILS % (AUTO) 3 % (0-10); HEMATOCRIT 44 % (40-54); HEMOGLOBIN 15.2 g/dL (13.3-17.7); LYMPHOCYTES # (AUTO) 1.2 10^3/uL (1.0-4.0); LYMPHOCYTES % (AUTO) 22 % (12-44); MEAN CORPUSCULAR HEMOGLOBIN 31 pg (25-34); MEAN CORPUSCULAR HGB CONC 35 g/dL (32-36); MEAN CORPUSCULAR VOLUME 89 fL (80-99); MEAN PLATELET VOLUME 9.5 fL (9.0-12.2); MONOCYTES # (AUTO) 0.6 10^3/uL (0.0-1.0); MONOCYTES % (AUTO) 11 % (0-12); NEUTROPHILS # (AUTO) 3.5 10^3/uL (1.8-7.8); NEUTROPHILS % (AUTO) 63 % (42-75); PLATELET COUNT 208 10^3/uL (130-400); WHITE BLOOD COUNT 5.6 10^3/uL (4.3-11.0)
[2021-02-21 06:55] LABS: CALCIUM 8.5 MG/DL (8.5-10.1); CREATININE SERUM 0.88 MG/DL (0.60-1.30); POTASSIUM 4.3 MMOL/L (3.6-5.0)
--- NOTE | 2021-02-21 07:42 | Physical Therapy Evaluation ---
PT Evaluation-General Medical Diagnosis Admission Date Feb 20, 2021 at 15:15 Medical Diagnosis: TIA Onset Date: Feb 20, 2021 Therapy Diagnosis Therapy Diagnosis: balance limitations Precautions Precautions/Isolations: Standard Precautions Weight Bear Status Full Weight Bearing Full Weight Bearing Referral Physician: Dorothea Reason for Referral: Evaluation/Treatment Prior Prior Level of Function SCALE: Activities may be completed with or without assistive devices. 8-Ziwnsptuem-sqsivab completes the activity by him/herself with no assistance from a helper. 5-Set-up or Clean-up Assistance-helper sets up or cleans up; patient completes activity. [place] assists only prior to or following the activity. 4-Supervision or Touching Assistance-helper provides verbal cues and/or touching/steadying and/or contact guard assistance as patient completes activity. Assistance may be provided throughout the activity or intermittently. 3-Partial/Moderate Assistance-helper does LESS THAN HALF the effort. [place] lifts, holds or supports trunk or limbs, but provides less than half the effort. 2-Substantial/Maximal Assistance-helper does MORE THAN HALF the effort. [place] lifts or holds trunk or limbs and provides more than half the effort. 1-Bgjcjhybp-helsfa does ALL the effort. Patient does none of the effort to complete the activity. Or, the assistance of 2 or more helpers is required for the patient to complete the activity. If activity was not attempted, code reason: 7-Patient Refused. 9-Not Applicable-not attempted and the patient did not perform the activity before the current illness, exacerbation or injury. 10-Not Attempted due to Environmental Limitations-(lack of equipment, weather restraints, etc.). 88-Not Attempted due to Medical Conditions or Safety Concerns. Bed Mobility: 6 Transfers (B,C,W/C): 6 Gait: 6 Stairs: 6 Indoor Mobility (Ambulation): Independent Stairs: Independent PT Evaluation-Current Subjective The patient states that his leg went to sleep yesterday and it didn't wake back up until later. States that he is doing great now and ready to go home. Pain Numeric Pain Scale: 0-No Pain Objective Patient Orientation: Person, Place, Time ROM/Strength ROM Upper Extremities WFL ROM Lower Extremities WFL Strength Lower Extremities 4+/5 in (B) dorsiflexion and plantarflexion Transfers Roll Left to Right (QC): 6 Sit to Lying (QC): 6 Lying to Sitting/Side of Bed(Q: 6 Sit to Stand (QC): 6 Chair/Yon-qn-Zwyyd Xfer(QC): 6 Toilet Transfer (QC): 6 Gait Does the Patient Walk?: Yes Mode of Locomotion: Walk Anticipated Mode of Locomotion: Walk Walk 10 feet (QC): 6 Walk 50 ft with 2 Turns(QC): 6 Walk 150 ft (QC): 6 Distance: 500' Gait Assistive Device: None Wheelchair Training Does the Pt Use a Wheelchair?: No Balance Sitting Static: Normal Sitting Dynamic: Normal Standing Static: Normal Standing Dynamic: Good Special Test Comments Patient was only able to hold for 3 seconds on both tandem stance and single leg stance. Assessment/Needs 70 y.o. male admitted for observation after probable TIA. The patient only has very mild higher level balance limitations and is safe with gait and functional mobility. He will be discharged from acute PT with a recommendation of outpatient PT if his higher level balance continues to be a problem. Rehab Potential: Good PT Plan Problem List Problem List: Balance Treatment/Plan Treatment Plan: Discontinue PT Treatment Duration: Feb 21, 2021 Frequency: 1 time per week Time/GCodes Time In: 725 Time Out: 735 Total Billed Treatment Time: 10 Total Billed Treatment 1, EV low complexity x 10' ROSMERY BRADFORD PT Feb 21, 2021 07:42
[2021-02-21 08:00] VITALS: BP 134/75
[2021-02-21] MEDS ORDERED: DOCUSATE SODIUM 100 MG (COLACE) CAP PO SCH (09:00)
[2021-02-21] MEDS ORDERED: ASPIRIN E.C. 325 MG (ECOTRIN) TABLET PO SCH (09:00)
[2021-02-21] MEDS: CATHETER FLUSH 10 ML SYR IV SCH (09:46)
[2021-02-21] MEDS ORDERED: ASPI-999 PO (10:44)
--- NOTE | 2021-02-21 10:47 | Discharge Summary ---
Diagnosis/Chief Complaint Date of Admission Feb 20, 2021 at 15:15 Date of Discharge Admission Diagnosis TIA Primary Care No,Local Physician Discharge Diagnosis (1) TIA (transient ischemic attack) Status: Acute (2) Essential (primary) hypertension Discharge Summary Discharge Physical Exam Allergies: Coded Allergies: No Allergy Information Available (Unverified , 08/02/19) Vitals & I&Os Vital Signs Date Time Temp Pulse Resp B/P (MAP) Pulse Ox O2 Delivery O2 Flow Rate FiO2 02/21/21 08:00 96 Room Air 02/21/21 08:00 36.7 75 18 134/75 (94) General Appearance: No Apparent Distress, WD/WN Cardiovascular: Regular Rate, Rhythm, No Murmur Gastrointestinal: Normal Bowel Sounds, Soft Neurologic/Psychiatric: Alert, Oriented x3 Hospital Course Patient was admitted to the hospital secondary to TIA. He had left-sided lower extremity weakness that resolved prior to arrival to the ER. He had an NIH of 0. His CT head was negative along with a CTA. He underwent MRI of his brain which was negative for acute infarct. He was started on aspirin and is to continue this. He was seen by cardiology and had an echo. He is to follow-up with his primary care doctor to follow-up this hospital stay. He was discharged home at his request in stable and improved condition with no deficits. Labs (last 24 hrs) Laboratory Tests 02/20/21 14:00: White Blood Count 5.8, Red Blood Count 5.10, Hemoglobin 15.7, Hematocrit 45, Mean Corpuscular Volume 88, Mean Corpuscular Hemoglobin 31, Mean Corpuscular Hemoglobin Concent 35, Red Cell Distribution Width 11.9, Platelet Count 221, Mean Platelet Volume 9.4, Immature Granulocyte % (Auto) 0, Neutrophils (%) (Auto) 61, Lymphocytes (%) (Auto) 24, Monocytes (%) (Auto) 13H, Eosinophils (%) (Auto) 2, Basophils (%) (Auto) 1, Neutrophils # (Auto) 3.5, Lymphocytes # (Auto) 1.4, Monocytes # (Auto) 0.7, Eosinophils # (Auto) 0.1, Basophils # (Auto) 0.0, Immature Granulocyte # (Auto) 0.0, Prothrombin Time 14.4, INR Comment 1.1, Activated Partial Thromboplast Time 31, D-Dimer 0.32, Sodium Level 138, Potassium Level 4.0, Chloride Level 105, Carbon Dioxide Level 25, Anion Gap 8, Blood Urea Nitrogen 17, Creatinine 0.89, Estimat Glomerular Filtration Rate 84, BUN/Creatinine Ratio 19, Glucose Level 102, Calcium Level 9.1, Corrected Calcium 8.9, Total Bilirubin 0.8, Aspartate Amino Transf (AST/SGOT) 29, Alanine Aminotransferase (ALT/SGPT) 29, Alkaline Phosphatase 70, Troponin I < 0.028, Total Protein 6.8, Albumin 4.3 02/20/21 14:01: Glucometer 93 02/20/21 15:27: Urine Color YELLOW, Urine Clarity CLEAR, Urine pH 6.0, Urine Specific [place] 1.010L, Urine Protein NEGATIVE, Urine Glucose (UA) NEGATIVE, Urine Ketones NEGATIVE, Urine Nitrite NEGATIVE, Urine Bilirubin NEGATIVE, Urine Urobilinogen 0.2, Urine Leukocyte Esterase NEGATIVE, Urine RBC (Auto) TRACE-IH, Urine RBC 0- 2, Urine WBC NONE, Urine Squamous Epithelial Cells RARE, Urine Crystals NONE, Urine Bacteria NEGATIVE, Urine Casts NONE, Urine Mucus NEGATIVE, Urine Culture Indicated NO 02/21/21 06:22: White Blood Count 5.6, Red Blood Count 4.97, Hemoglobin 15.2, Hematocrit 44, Deann n Corpuscular Volume 89, Mean Corpuscular Hemoglobin 31, Mean Corpuscular Hemoglobin Concent 35, Red Cell Distribution Width 12.0, Platelet Count 208, Mean Platelet Volume 9.5, Immature Granulocyte % (Auto) 0, Neutrophils (%) (Auto) 63, Lymphocytes (%) (Auto) 22, Monocytes (%) (Auto) 11, Eosinophils (%) (Auto) 3, Basophils (%) (Auto) 0, Neutrophils # (Auto) 3.5, Lymphocytes # (Auto) 1.2, Monocytes # (Auto) 0.6, Eosinophils # (Auto) 0.2, Basophils # (Auto) 0.0, Immature Granulocyte # (Auto) 0.0, Sodium Level 136, Potassium Level 4.3, Chloride Level 107, Carbon Dioxide Level 22, Anion Gap 7, Blood Urea Nitrogen 16, Creatinine 0.88, Estimat Glomerular Filtration Rate 85, BUN/Creatinine Ratio 18, Glucose Level 100, Calcium Level 8.5, Triglycerides Level 74, Cholesterol Level 133, LDL Cholesterol Direct 97, VLDL Cholesterol 15, HDL Cholesterol 38L Patient resulted labs reviewed. Pending Labs Laboratory Tests 02/21/21 06:22: White Blood Count 5.6, Red Blood Count 4.97, Hemoglobin 15.2, Hematocrit 44, Mean Corpuscular Volume 89, Mean Corpuscular Hemoglobin 31, Mean Corpuscular Hemoglobin Concent 35, Red Cell Distribution Width 12.0, Platelet Count 208, Mean Platelet Volume 9.5, Immature Granulocyte % (Auto) 0, Neutrophils (%) (Auto) 63, Lymphocytes (%) (Auto) 22, Monocytes (%) (Auto) 11, Eosinophils (%) (Auto) 3, Basophils (%) (Auto) 0, Neutrophils # (Auto) 3.5, Lymphocytes # (Auto) 1.2, Monocytes # (Auto) 0.6, Eosinophils # (Auto) 0.2, Basophils # (Auto) 0.0, Immature Granulocyte # (Auto) 0.0, Sodium Level 136, Potassium Level 4.3, Chloride Level 107, Carbon Dioxide Level 22, Anion Gap 7, Blood Urea Nitrogen 16, Creatinine 0.88, Estimat Glomerular Filtration Rate 85, BUN/Creatinine Ratio 18, Glucose Level 100, Calcium Level 8.5, Triglycerides Level 74, Cholesterol Level 133, LDL Cholesterol Direct 97, VLDL Cholesterol 15, HDL Cholesterol 38 Imaging: Reviewed Imaging Report Discussion & Recommendations Discharge Planning: >30 minutes discharge planning Discharge Home Medications: Active Scripts Active Instructions to patient/family Please see electronic discharge instructions given to patient. Clinical Quality Measures Stroke: Date of last known well: Feb 20, 2021 Time of last known well: 09:00 KATHLEEN TURNER MD Feb 21, 2021 10:47
--- NOTE | 2021-02-21 11:09 | Discharge Inst-Simple/Standard ---
Discharge Inst-Standard Patient Instructions/Follow Up Plan of Care/Instructions/FU: Please continue take your medications as written. Please follow-up with your primary care physician in [place] to follow-up this hospital stay. Activity as Tolerated: Yes Discharge Diet: No Restrictions Return to The Hospital For: Weakness, slurred speech, facial drop, heart racing, chjest pain, shortness of breath, if you feel you are getting worse. KATHLEEN TURNER MD Feb 21, 2021 11:09
--- NOTE | 2021-02-21 11:38 | Occ Therapy Progress Note ---
Therapy Progress Note OT orders received and chart was reviewed. Per physical therapy, pt is at baseline and walked over 500 feet indep without an assistive device. Per chart, pt with discharge orders home. OT to discharge at this time. Calli Harvey OT Feb 21, 2021 11:38
[2021-02-21 12:00] VITALS: BP 155/80
[2021-02-21 15:15] VITALS: BP 155/80
--- NOTE | 2021-02-21 15:38 | Consultation-Cardiology ---
HPI-Cardiology Cardiology Consultation: Date of Consultation 02/21/21 Time Seen by a Provider: 15:00 Date of Admission Attending Physician Kathleen Lindsey MD Admitting Physician No,Local Physician Consulting Physician THAIS NEGRO MD, MA, FACP, FACC, FSCAI, CCDS Physician requesting consult: Dr Lindsey HPI: Chief Complaint: Transient L leg weakness on 02/20/21 70 yo man admitted to Dr Lindsey for L leg weakness lasting about 2 hours ofn 02/20/21, diagnosed as TIA, no recurrence since. No cp or palp or syncope or shortness of breath or swelling Review of Systems-Cardiology Review of Systems Constitutional: No malaise, No tiredness, No weight loss, No weight gain Eyes: No vision change Ears/Nose/Throat: No ear discharge, No nasal drainage, No recent hearing loss Respiratory: As described under HPI Cardiovascular: As described under HPI Gastrointestinal: No diarrhea, No nausea, No vomiting Genitourinary: No dysuria, No hematuria, No urine frequency changes Musculoskeletal: No joint pain, No joint swelling Skin: No rash, No ulcerations Psychiatric/Neurological: As described under HPI Hematologic: No bleeding abnormalities All Other Systems Reviewed Negative Unless Noted: Yes [id number]-[id number]-Gvobsp Hx Patient Social History Smoking Status: Never a Smoker Have you traveled recently?: No Alcohol Use?: No Pt feels they are or have been: No Immunizations Up To Date Date of Influenza Vaccine: Jan 07, 2021 Past Medical History PMH As described under Assessment. Family Medical History Family Medical History: He does not report any fam h/o of early CAD or SCD Allergies and Home Medications Allergies Coded Allergies: No Allergy Information Available (Unverified , 08/02/19) Patient Home Medication List Home Medication List Reviewed: Yes Aspirin (Aspirin) 81 Mg Tab.chew, 81 MG PO DAILY Prescribed by: KATHLEEN LINDSEY on 02/21/21 1044 Physical Exam-Cardiology Physical Exam Vital Signs/I&O 02/21/21 02/21/21 02/21/21 02/21/21 04:20 07:00 08:00 08:00 Temp 36.5 36.7 Pulse 83 75 75 Resp 16 18 B/P (MAP) 141/78 (99) 134/75 (94) Pulse Ox 98 96 96 O2 Delivery Room Air Room Air Room Air 02/21/21 02/21/21 12:00 12:43 Temp 36.8 Pulse 71 76 Resp 20 B/P (MAP) 155/80 (105) Pulse Ox 97 O2 Delivery Room Air 02/21/21 00:00 Intake Total 440 ml Balance 440 ml Capillary Refill : Less Than 3 Seconds Constitutional: AAO x 3, well-developed, well-nourished HEENT: EOMI, hearing is well preserved; No xanthelasmas are seen Neck: carotid pulses are 2 + bilaterally, with good upstrokes Respiratory: No accessory muscle use; other (good, bilateral air entry) Cardiovascular: regular rate-rhythm, S1 and S2, systolic murmur (faint YUKI at card base) Gastrointestinal: No tender; soft; No guarding, No rebound; audible bowel sounds Extremities: No clubbing, No cyanosis, No significant edema Neurologic/Psychiatric: oriented x 3, other (moves all limbs equally) Skin: warm/dry; No cyanosis, No rash on exposed areas, No ulcerations on exposed areas Data Review Labs Laboratory Tests 02/21/21 06:22: White Blood Count 5.6, Red Blood Count 4.97, Hemoglobin 15.2, Hematocrit 44, Mean Corpuscular Volume 89, Mean Corpuscular Hemoglobin 31, Mean Corpuscular Hemoglobin Concent 35, Red Cell Distribution Width 12.0, Platelet Count 208, Mean Platelet Volume 9.5, Immature Granulocyte % (Auto) 0, Neutrophils (%) (Auto) 63, Lymphocytes (%) (Auto) 22, Monocytes (%) (Auto) 11, Eosinophils (%) (Auto) 3, Basophils (%) (Auto) 0, Neutrophils # (Auto) 3.5, Lymphocytes # (Auto) 1.2, Monocytes # (Auto) 0.6, Eosinophils # (Auto) 0.2, Basophils # (Auto) 0.0, Immature Granulocyte # (Auto) 0.0, Sodium Level 136, Potassium Level 4.3, Chloride Level 107, Carbon Dioxide Level 22, Anion Gap 7, Blood Urea Nitrogen 16, Creatinine 0.88, Estimat Glomerular Filtration Rate 85, BUN/Creatinine Ratio 18, Glucose Level 100, Calcium Level 8.5, Triglycerides Level 74, Cholesterol Level 133, LDL Cholesterol Direct 97, VLDL Cholesterol 15, HDL Cholesterol 38L Laboratory Tests 02/20/21 14:00 02/21/21 06:22 A/P-Cardiology Assessment/Admission Diagnosis Transient L leg weakness on 02/21/21 (?TIA, managed by Dr Lindsey) - No CT or MRI evidence of acute infarct - No CT evidence of any significant carotid art disease - rhythm persistently sinus during this admission - Echo on 02/21/21: LVEF 65-70%, mildly dilated left atrium, normal estimated PASP Discussion and Recomendations * Management of TIA is with Dr Lindsey * Advised 4-event monitor. He has not agreed * BP borderline elevated. F/u advised. He states he has a pcp in [place] and will f/u with him * Outpt cardiac f/u advised. He says he will establish that in [place] to which he is moving in the next day or two Clinical Quality Measures Stroke: Date of last known well: Feb 20, 2021 Time of last known well: 09:00 THAIS NEGRO MD FACP FAC CCDS Feb 21, 2021 15:37
== END 2021-02-21 12:53 | disposition home or self-care (01) ==
LOC: EDUNIT# 13:49 → ER 13:54 → UNDOADMOB 15:15 → 4TH 15:15 → UNDODISOB 02-21 15:23
PROVIDERS: ADMIT Family Medicine; ATTEND Family Medicine
DX: G45.9 Transient cerebral ischemic attack, unspecified (principal); I11.9 Hypertensive heart disease without heart failure
CPT/HCPCS: 70450; 70496; 70498; 70551; 71045; 80048; 80053; 80061; 81000; 82947; 84484; 85025 ×2; 85379; 85610; 85730; 93005; 93041; 93306; 97161; 99284; G0378; 36415